=== PATIENT | male | born 1945 ===

== ENCOUNTER 2017-06-28 08:29 | Outpatient (CLI) | payer OTHER ==
[~2017-06-28] VITALS: Ht 152.4 cm; Wt 77.1 kg
[~2017-06-28 08:29] MED LIST: FLONASE16 GM NASAL; LIPO-FLAVONOID1 EACH PO
[2017-06-28] MEDS ORDERED: FLONASE16 GM NASAL (10:13)
[2017-06-28] MEDS ORDERED: CLARITIN10 MG PO (10:13)
== END 2017-06-28 08:45 | disposition home or self-care (01) ==
LOC: OFIC 805 08:29
DX: J31.0 Chronic rhinitis (principal); R42 Dizziness and giddiness; J32.8 Other chronic sinusitis; J34.2 Deviated nasal septum

== ENCOUNTER 2017-12-27 07:41 | Outpatient (CLI) | payer OTHER ==
[~2017-12-27] VITALS: Ht 152.4 cm; Wt 77.1 kg
[~2017-12-27 07:41] MED LIST changes: +CLARITIN10 MG PO
== END 2017-12-27 08:00 | disposition home or self-care (01) ==
LOC: OFIC 805 07:41
DX: J31.0 Chronic rhinitis (principal); J34.2 Deviated nasal septum; J32.8 Other chronic sinusitis